=== PATIENT | female | born 1980 ===

== ENCOUNTER 2022-07-30 11:51 | Emergency (ER) | payer BC ==
[2022-07-30] MEDS ORDERED: Sodium Chloride 0.9% 1,000 ML IV ONE (13:40)
[2022-07-30] MEDS ORDERED: Ketorolac 30 MG/ML SDV IVPUSH ONE (13:41)
[2022-07-30] MEDS ORDERED: Morphine 4 MG/ML Syringe IVPUSH ONE (13:59)
[2022-07-30] MEDS ORDERED: Ondansetron 4 MG/2 ML SDV IVPUSH ONE (13:59)
[2022-07-30 14:12] LABS: CORONAVIRUS COVID-19 NAA NEGATIVE (NEGATIVE); INFLUENZA A NAA NEGATIVE (NEGATIVE); INFLUENZA B NAA NEGATIVE (NEGATIVE); RESPIRATORY SYNCYTIAL VIR NAA NEGATIVE (NEGATIVE)
[2022-07-30 14:46] LABS: CARBON DIOXIDE,CO2 23.4 mmol/L (21.0-32.0); POTASSIUM,K 3.7 mmol/L (3.5-5.1)
[2022-07-30] MEDS ORDERED: Iopamidol 755 MG/ML 500 ML Multipack Bottle IVPUSH STA (15:44)
[2022-07-30] MEDS ORDERED: Acetaminophen 500 MG Tab PO ONE (18:08)
[2022-07-30] MEDS ORDERED: methylPREDNISolone Sodium Succinate 125 MG/2 ML SDV IVPUSH ONE (18:08)
[2022-07-30] MEDS ORDERED: Acetaminophen/HYDROcodone 325-10 MG Tab PO ONE (19:22)
[2022-07-30] MEDS ORDERED: oxyCODONE 5 MG Tab PO ONE (19:28)
== END 2022-07-30 20:03 | disposition home or self-care (01) ==
LOC: MW.ED 11:51
DX: M54.2 Cervicalgia (principal); D72.829 Elevated white blood cell count, unspecified; Z20.822 Contact with and (suspected) exposure to COVID-19
CPT/HCPCS: 0241U; 36415; 70450; 70491; 80053; 82550; 82945; 83605; 84157; 84703; 85025; 86308; 87015; 87040; 87070; 87205; 87651; 89050; 96361; 96374; 96375; 99284; A9270; J1885; J2930; J7030; Q9967; 72125-26